=== PATIENT | male | born 1945 | race Two or more races ===

== ENCOUNTER 2018-04-22 17:04 | Emergency (ER) | payer MEDICARE, OTHER ==
[~2018-04-22] VITALS: Ht 177.8 cm; Wt 74.8 kg
[2018-04-22 18:01] LABS: BASOPHILS % (AUTO) 0.2 % (0.0-2.0); EOSINOPHILS % (AUTO) 0.7 % (0.0-6.0); HEMATOCRIT 41 % (39-51); HEMOGLOBIN 13.9 g/dL (13.5-17.5); LYMPHOCYTES # (AUTO) 0.8 /CMM (0.8-4.8); LYMPHOCYTES % (AUTO) 12.7 % (20.0-44.0); MEAN CORPUSCULAR HEMOGLOBIN 32 PG (26.0-33.0); MEAN CORPUSCULAR HGB CONC 34 g/dl (31.0-36.0); MEAN CORPUSCULAR VOLUME 93 fL (80-96); MONOCYTES # (AUTO) 0.4 /CMM (0.1-1.30); NEUTROPHILS # (AUTO) 5.1 /CMM (1.8-8.9); NEUTROPHILS % (AUTO) 80.4 % (43.0-81.0); PLATELET COUNT (AUTO) 163 /CMM (150-450); RDW COEFFICIENT OF VARIATION 11.6 (11.5-15.0); RED BLOOD CELL COUNT(AUTO) 4.35 MIL/uL (4.5-6.0); WHITE BLOOD COUNT (AUTO) 6.3 K/uL (4.3-11.0)
[2018-04-22 18:08] LABS: CALCIUM, SERUM 8.3 mg/dL (8.5-10.1); CARBON DIOXIDE 30 mmol/L (21-32); CHLORIDE 104 mmol/L (98-107); CREATININE 1.1 mg/dL (0.6-1.3); GLUCOSE 175 mg/dL (74-106); POTASSIUM 3.7 mmol/L (3.5-5.1); SODIUM SERUM 139 mmol/L (136-145); UREA NITROGEN, BLOOD 18 mg/dL (7-18)
[2018-04-22 18:15] LABS: ALANINE AMINOTRANSFERASE 26 U/L (12-78); ALBUMIN 3.5 g/dL (3.4-5.0); ALCOHOL, BLOOD < 3 mg/dL (0-0); ALKALINE PHOSPHATASE 96 U/L (46-116); ASPARTATE AMINOTRANSFERASE 19 U/L (15-37); BILIRUBIN,DIRECT 0.1 mg/dL (0.0-0.2); BILIRUBIN,TOTAL 0.5 mg/dL (0.2-1.0); TOTAL PROTEIN, SERUM 6.7 g/dL (6.4-8.2)
[2018-04-22 18:16] LABS: TROPONIN I < 0.017 ng/mL (0.00-0.056)
[2018-04-22 18:18] LABS: SERUM AMMONIA 25 umol/L (11-32)
[2018-04-22 18:26] LABS: SALICYLATE 0.6 mg/dL (2.8-20.0)
[2018-04-22 18:46] LABS: ACETAMINOPHEN 0 ug/ml (10-30)
--- NOTE | 2018-04-22 19:51 | NUR ---
Recieved patient from Shoaib HERNANDEZ for [facility]. Patient is resting in er bed, no distress noted at this time. patient daughter is at bed side. VS updated. will continue to monitor
--- NOTE | 2018-04-22 20:45 | NUR ---
GAVE PATIENT JUICE AND CRACKERS
--- NOTE | 2018-04-22 22:02 | NUR ---
PT AMBULATED WITH STEADY GAIT, MD SAEED NOTIFIED
[2018-04-22 22:44] VITALS: BP 117/63
--- NOTE | 2018-04-22 22:44 | NUR ---
Patient discharged to home in stable condition. Written and verbal after care instructions given. Patient verbalizes understanding of instruction. PT ambulatory with a steady gait VITAL SIGNS WITHIN NORMAL LIMITS.
== END 2018-04-22 22:44 | disposition home or self-care (01) ==
LOC: ER 17:10
DX: F12.10 Cannabis abuse, uncomplicated (principal)
CPT/HCPCS: 36415; 80048; 80076; 80305; 80329; 82140; 84484; 85025; 99284; A4606; A6403; G0480 ×2; Z7610

== ENCOUNTER 2019-11-12 22:31 | Emergency (ER) | payer MEDICARE, OTHER ==
[~2019-11-12] VITALS: Ht 175.3 cm; Wt 81.6 kg
[2019-11-12 22:42] VITALS: BP 135/67
--- NOTE | 2019-11-12 23:26 | NUR ---
A/OX4, BREATHING EVEN AND UNLABORED, NO SOB NOTED. Patient discharged to home in stable condition. Written and verbal after care instructions given. Patient verbalizes understanding of instruction.
== END 2019-11-12 23:27 | disposition home or self-care (01) ==
LOC: ER 22:40
DX: B34.9 Viral infection, unspecified (principal); R53.81 Other malaise; R68.83 Chills (without fever)

== ENCOUNTER 2019-11-14 11:35 | Emergency (ER) | payer MEDICARE, MEDICAID ==
[~2019-11-14] VITALS: Ht 170.2 cm; Wt 74.8 kg
[2019-11-14 11:44] VITALS: BP 121/63
== END 2019-11-14 13:30 | disposition home or self-care (01) ==
LOC: ER 11:39
DX: J11.1 Influenza due to unidentified influenza virus with other respiratory manifestations (principal)
CPT/HCPCS: 71045-TC

== ENCOUNTER 2022-04-15 08:48 | Emergency (ER) | payer MEDICARE, OTHER ==
[~2022-04-15] VITALS: Ht 177.8 cm; Wt 81.6 kg
--- NOTE | 2022-04-15 08:59 | NUR ---
TO ER BED 1 FOR EVAL,EKG ,MONITOR
--- NOTE | 2022-04-15 09:05 | NUR ---
DR JOHNSTON AT BEDSIDE
--- NOTE | 2022-04-15 09:23 | NUR ---
IV LINE ESTABLISHED ON RAC #20, BLOOD DRAWN AND SENT TO LAB
[2022-04-15 09:37] LABS: CALCIUM, SERUM 7.9 mg/dL (8.5-10.1); CARBON DIOXIDE 29 mmol/L (21-32); CHLORIDE 102 mmol/L (98-107); CREATININE 1.2 mg/dL (0.6-1.3); GLUCOSE 106 mg/dL (74-106); POTASSIUM 4.1 mmol/L (3.5-5.1); SODIUM SERUM 138 mmol/L (136-145); UREA NITROGEN, BLOOD 20 mg/dL (7-18)
--- NOTE | 2022-04-15 09:41 | NUR ---
SNUFF MAKER AT BEDSIDE FOR XRAY
[2022-04-15] MEDS ORDERED: ASPI-1420 PO (10:04)
[2022-04-15] MEDS ORDERED: LISI30TA4 PO (10:04)
[2022-04-15] MEDS ORDERED: ROSU10TA29 PO (10:04)
[2022-04-15 10:10] LABS: BASOPHILS % (AUTO) 0.6 % (0.0-2.0); HEMATOCRIT 40 % (39-51); HEMOGLOBIN 13.3 g/dL (13.5-17.5); LYMPHOCYTES # (AUTO) 1.4 K/uL (0.8-4.8); LYMPHOCYTES % (AUTO) 27.2 % (20.0-44.0); MEAN CORPUSCULAR HGB CONC 34 g/dl (31.0-36.0); MEAN CORPUSCULAR VOLUME 94 fL (80-96); MONOCYTES # (AUTO) 0.4 K/uL (0.1-1.30); MONOCYTES % (AUTO) 8.1 % (2.0-12.0); NEUTROPHILS # (AUTO) 3.2 K/uL (1.8-8.9); NEUTROPHILS % (AUTO) 62.1 % (43.0-81.0); PLATELET COUNT (AUTO) 123 K/uL (150-450); RED BLOOD CELL COUNT(AUTO) 4.22 MIL/uL (4.5-6.0); WHITE BLOOD COUNT (AUTO) 5.2 K/uL (4.3-11.0)
[2022-04-15 10:28] VITALS: BP 124/70
--- NOTE | 2022-04-15 10:28 | NUR ---
IV removed. Catheter intact and site benign. Pressure and 4x4 applied to site. No bleeding noted.
--- NOTE | 2022-04-15 10:28 | NUR ---
Patient discharged to home in stable condition. Written and verbal after care instructions given. Patient verbalizes understanding of instruction.
== END 2022-04-15 10:29 | disposition home or self-care (01) ==
LOC: ER 09:17
DX: M25.512 Pain in left shoulder (principal); Z79.899 Other long term (current) drug therapy; Z79.82 Long term (current) use of aspirin
CPT/HCPCS: 36415; 71045-TC; 80048-TC; 84484-TC; 85025-TC

== ENCOUNTER 2022-05-05 19:55 | Emergency (ER) | payer MEDICARE, OTHER ==
[~2022-05-05] VITALS: Ht 177.8 cm; Wt 81.6 kg
[~2022-05-05 19:55] MED LIST: ASPI-1420 PO; LISI30TA4 PO; ROSU10TA29 PO
[2022-05-05 20:14] VITALS: BP 132/79
[2022-05-05] MEDS ORDERED: AZIT250T13 PO (21:24)
--- NOTE | 2022-05-05 21:33 | NUR ---
Patient discharged to home in stable condition. Written and verbal after care instructions given. Patient verbalizes understanding of instruction.
== END 2022-05-05 21:34 | disposition home or self-care (01) ==
LOC: ER 20:03
DX: U07.1 COVID-19 (principal); J12.82 Pneumonia due to coronavirus disease 2019; Z79.899 Other long term (current) drug therapy; Z79.82 Long term (current) use of aspirin
CPT/HCPCS: 71045-TC